=== PATIENT | female | born 1985 | race Caucasian/White ===

== ENCOUNTER 2020-01-21 12:28 | Outpatient (CLI) | payer OTHER, SELFPAY ==
--- NOTE | ~2020-01-21 | US_ITS ---
EXAMINATION: US pelvic complete w TV EXAM DATE: 01/21/2020 13:44 INDICATION: Fibroids. TECHNIQUE: Pelvic transabdominal and transvaginal sonogram was performed. There are multiple graysca le and Doppler images available for interpretation. There is no prior study for comparison. FINDINGS: Uterus measures 15.0 x 7.2 x 7.3 cm, is retroflexed which is probably contributing to some dilatations in evaluating, particularly transabdominally. There is a fibroid identified measuring 2. 8 cm Endometrial stripe measures 2 mm, within normal limits. There is no free pelvic fluid. Right adnexa: The ovary measures 4.0 x 4.8 x 2.3 cm, with a hypoechoic, likely proteinaceous cystic l esion measuring up to 3.0 cm. Ovarian vascular flow confirmed. Left adnexa: The ovary measures 4.4 x 3.7 x 4.5 cm, with a hypoechoic, likely proteinaceous cystic le alexandro measuring 3.0 cm. Ovarian vascular flow confirmed. IMPRESSION: 1. Probable small fibroid. 2. Hypoechoic cystic lesion in each ovary probably hemorrhage exists. Reviewed, dictated and finalized at location B. WELDER
== END 2020-01-21 12:29 | disposition home or self-care (01) ==
PROVIDERS: PCP Physician Assistant; Visit Provider Physician Assistant
DX: D25.9 Leiomyoma of uterus, unspecified (principal)
CPT/HCPCS: 76830; 76856

== ENCOUNTER 2020-09-17 13:15 | Outpatient (CLI) | payer OTHER, SELFPAY ==
--- NOTE | ~2020-09-17 | XR_ITS ---
CORRECTED REPORT Ordering provider changed to Yanna Gomez MATHIEU [id number] EXAMINATION: [id number] EXAM DATE: 09/17/2020 13:35 INDICATION: Neck pain. TECHNIQUE: Cervical spine frontal, lateral, and open-mouth odontoid projections. There is no prior study for comparison. FINDINGS: There is no evidence of acute cervical fracture. The odontoid process is intact. Pre-dens space is normal. Prevertebral soft tissue is normal. There are no soft tissue abnormalities identified. Vertebral body and disc heights are well-maintained. The vertebral bodies are aligned. IMPRESSION: Unremarkable cervical x-ray exam. Reviewed, dictated and finalized at location A. MTDD
== END 2020-09-17 13:16 | disposition home or self-care (01) ==
PROVIDERS: PCP Nurse Practitioner Family; Visit Provider Nurse Practitioner Family
DX: M54.2 Cervicalgia (principal)
CPT/HCPCS: 72040

== ENCOUNTER 2021-07-06 11:06 | Emergency (ER) | payer OTHER, SELFPAY ==
[2021-07-06] VITALS (28 sets, daily range): BP systolic 117–167; BP diastolic 71–97; PULSE 75–94; RESP 16–31; TEMP 36.2; O2SAT 98–100
--- NOTE | ~2021-07-06 | XR_ITS ---
EXAMINATION: XR chest 1V portable DATE: 07/06/2021 14:44 INDICATION: Dizziness. TECHNIQUE: A single frontal view of the chest was obtained. COMPARISON: Chest single view 06/11/2020 FINDINGS: The chest demonstrates clear lungs without pneumonia, pleural effusion, or pneumothorax. Th e heart size is normal. IMPRESSION: 1. No acute cardiopulmonary disease. Reviewed, dictated and finalized at location B.
--- NOTE | ~2021-07-06 | CT_ITS ---
EXAMINATION: CT brain wo con DATE: 07/06/2021 14:33 INDICATION: dizziness TECHNIQUE: Computed tomography (CT) of the head was performed without intravenous contrast. The mA wa s adjusted according to patient size. Iterative reconstruction technique was employed. The dose-lengt h product was 605.33 mGy-cm. COMPARISON: None FINDINGS: No acute intracranial hemorrhage or extra-axial fluid collection. No hydrocephalus, mass, or herniation. No acute ischemic infarct. Unremarkable dural venous sinus attenuation. No acute osseous abnormality. The aerated spaces are clear. IMPRESSION: No acute intracranial process. Reviewed, dictated and finalized at location K.
--- NOTE | 2021-07-06 11:07 | ECG_ITS ---
Measurements Intervals [place] Rate: 80 P: 26 [place]: 158 QRS: 1 QRSD: 90 T: 30 QT: 353 QTc: 408 Interpretive Statements SINUS RHYTHM LOW QRS VOLTAGE IN PRECORDIAL LEADS [QRS DEFLECTION < 1.0 mV IN CHEST LEADS] POSSIBLE ANTERIOR MYOCARDIAL INFARCTION , PROBABLY OLD [30 ms Q WAVE IN V3/V4, OR R < 0.2 mV IN V4] ABNORMAL ECG NO PREVIOUS ECG AVAILABLE FOR COMPARISON Electronically Signed On 07-06-2021 11:42:21 CDT by Dl Aldrich M.D.
[2021-07-06 11:21] LABS: Basophils Percent Auto 0.3 % (0.2-1.2); Eosinophils Absolute Auto 0.1 K/mm3 (0-0.3); Eosinophils Percent Auto 1.5 % (0-4.4); Hematocrit 35.1 % (37.0-47.0); Hemoglobin 10.4 g/dL (12.0-15.0); Immature Granulocyte Absolute 0.05 K/mm3 (0.00-0.031); Immature Granulocyte Percent A 0.5 % (0-0.5); Lymphocytes Absolute Auto 1.59 K/mm3 (0.9-3.2); Lymphocytes Percent Auto 16.8 % (18.3-44.2); Mean Corpuscular HGB Conc 29.6 g/dl (32-36); Mean Corpuscular Hemoglobin 22.6 pg (26-34); Mean Corpuscular Volume 76.3 fl (80-100); Mean Platelet Volume 9.7 fl (7.4-10.4); Monocytes Absolute Auto 0.7 K/mm3 (0.1-0.6); Monocytes Percent Auto 7.5 % (2.6-8.5); Neutrophils Percent Auto 73.4 % (45.5-73.1); Platelet Count Result 399 k/mm3 (150-375); Red Cell Distribution Width 18.8 % (11.5-14.5); White Blood Count 9.5 K/mm3 (4.5-10.0)
[2021-07-06 11:31] LABS: Alanine Aminotransferase 12 U/L (4-35); Albumin Level 4.1 g/dL (3.5-5.1); Alkaline Phosphatase 93 U/L (38-126); Anion Gap 8 mmol/L (8-16); Aspartate Amino Transferase 21 U/L (14-36); Bilirubin,Total < 0.1 mg/dL (0.2-1.3); Blood Urea Nitrogen 7 mg/dL (7-17); Carbon Dioxide 26 mmol/L (22-30); Chloride 104 mmol/L (98-107); Estimated CRCL calculation 136 ml/min; Estimated Glomerular Filt Rate > 60; Glucose 124 mg/dL (65-110); Potassium 4.1 mmol/L (3.4-5.0); Sodium 138 mmol/L (137-145)
[2021-07-06 11:49] LABS: Anisocytosis 1+ (NORMAL); Platelet Estimate Adequate (Adequate); Poikilocytosis 1+ (NORMAL)
--- NOTE | 2021-07-06 12:29 | ED.DIZZY ---
HPI - Dizziness General Chief Complaint: Dizziness Stated Complaint: dizziness Time Seen by Provider: 07/06/21 11:50 Source: RN notes reviewed History of Present Illness HPI Narrative: Patient presents emergency department from home for dizziness. Patient states has been having intermittent dizziness over the past 3 days she states that this morning she was getting ready and she bent over and became more dizzy and had to sit down since that time she called her PCPs office and was recommended come the ER for further evaluation. States she does have a history of ovarian cyst that has intermittent bleeding and they were concerned about anemia she states her dizziness is improved while laying down in the bed she denies any fevers or chills vision changes numbness or tingling in the extremities chest pain shortness of breath or any other symptoms Related Data Home Medications Medication Instructions Recorded Confirmed bupropion HCl mg PO 07/06/21 ferrous sulfate [FeroSul] mg 07/06/21 prednisolone acetate drp 07/06/21 valacyclovir 07/06/21 Allergies Allergy/AdvReac Type Severity Reaction Status Date / Time No Known Allergies Allergy Unverified 07/18/17 11:09 Review of Systems Review of Systems: Gen.: Denies fevers or chills ENT: Denies congestion Respiratory: Denies shortness of breath or cough CV: Denies chest pain or palpitations GI: Denies abdominal pain nausea, emesis or diarrhea Musculoskeletal: Denies back pain or muscle pain Neuro: See HPI Skin: Denies rash Except as documented, all other systems reviewed and negative [facility] Past Medical History Medical History (Updated 07/06/21 @ 15:36 by Andrzej Bowles DO) Ovarian cyst Social History Social History (Updated 07/06/21 @ 12:31 by Andrzej Bowles DO) Smoking status: Never smoker Exam Narrative: APPEARANCE: No acute distress, nontoxic, resting in bed EYES: EOMI HEENT: Normocephalic, atraumatic, left TM normal in appearance, the right TM cannot be visualized secondary to cerumen impaction RESPIRATORY: No respiratory distress Clear to auscultation bilaterally with no rhonchi wheezing or rales. CARDIOVASCULAR: Regular rate and rhythm without murmurs rubs or gallops. ABDOMINAL: Soft, nontender, nondistended, no rebound or guarding MUSCULOSKELETAl: Moves all extremities. No clubbing, cyanosis or edema. NEURO: Awake and alert x 4. Following commands, speech normal, no focal deficits SKIN:: Warm, dry. No rashes lesions or abrasions PSYCHIATRIC: Normal affect/mood, Course Course Emergency Course: Patient with ear irrigation with removal of cerumen from right ear repeat exam shows normal TM Patient feeling much better getting able to get up and ambulate with no difficulty Discussed with patient results of workup and diagnosis. Discussed need for follow-up with primary care, proper use of medication, and reasons to return to the emergency department. Patient understands and agrees to current treatment plan Vital Signs Vital signs: Vital Signs Pulse Rate 82 07/06/21 11:07 Blood Pressure 137/88 07/06/21 11:07 Temperature 97.2 F L 07/06/21 11:09 Pulse Rate 78 07/06/21 13:37 Respiratory Rate 16 07/06/21 11:09 Blood Pressure 144/88 H 07/06/21 13:37 Pulse Oximetry 100 07/06/21 11:09 MDM - Dizziness MDM Narrative Medical decision making narrative: Patient's vertigo is felt to be likely peripheral in origin. There is no diplopia, dysarthria or dysphagia. Patient's gait is stable and there are no cerebral deficits to exam. Risk factor for central causes of vertigo reviewed. Patient felt likely reasonable for continued outpatient management and risks are felt to outweigh benefits for further imaging studies at this time Lab Data Result diagrams: 07/06/21 11:16 07/06/21 11:16 Labs: Lab Results 07/06/21 07/06/21 07/06/21 Range/Units 11:16 11:16 12:49 WBC 9.5 (4.5-10.0) K/mm3 RBC 4.60 (
[2021-07-06] MEDS: MECLIZINE HCL 25 MG TABLET PO (13:04)
[2021-07-06] MEDS: HYDROGEN PEROXIDE 3% SOLN(*SP) 473 ML BOTTLE (13:04)
[2021-07-06 13:12] LABS: INR 1.1; Prothrombin Time 13.7 Seconds (11.1-14.7)
[2021-07-06 13:13] LABS: Partial Thromboplastin Time 29.1 SECONDS (22.3-36.8)
[2021-07-06] MEDS: SODIUM CHLORIDE 0.9% IV 1,000 ML 999 ML IV CONT (13:24)
[2021-07-06 13:52] LABS: Appearance Urine Clear (Clear); Bilirubin Urine Negative (Negative); Blood Urine Negative (Negative); Color Urine Yellow (Yellow); Glucose Urine UA Negative (Negative); Ketones Urine Negative (Negative); Leukocyte Esterase Ur Negative LEU/UL (Negative); Nitrate Urine Negative (Negative); Protein Urine Negative (Negative); Urobilinogen Urine 0.2 mg/dL (<2.0)
[2021-07-06 13:54] LABS: Add Urine Microscopic? NO
== END 2021-07-06 15:46 | disposition home or self-care (01) ==
PROVIDERS: Emergency Provider Emergency Medicine; PCP Physician Assistant
DX: R42 Dizziness and giddiness (principal); H61.21 Impacted cerumen, right ear
CPT/HCPCS: 36415; 69209; 70450; 71045; 80053; 81003; 85025; 85610; 85730; 93005; 96360; 96361; 99284; A9270; J7030

== ENCOUNTER 2021-10-15 18:40 | Emergency (ER) | payer OTHER, SELFPAY ==
--- NOTE | ~2021-10-15 | CT_ITS ---
EXAMINATION: CT abdomen pelvis w con DATE: 10/15/2021 21:18 INDICATION: Generalized abdominal pain TECHNIQUE: Computed tomography (CT) of the abdomen and pelvis was performed with 100 cc Omnipaque 300 intravenous contrast. The dose-length product was 1360.28 mGy-cm. Automated exposure control and ite rative reconstruction technique were employed. COMPARISON: None. FINDINGS: Lung bases are unremarkable. Heart size normal. No significant pleural or pericardial effus ion. There is ascites. The liver, spleen, pancreas, adrenal glands and kidneys are unremarkable. Ther e is an accessory splenule. Gallbladder is present. There are multiple loops of thickened small bowel without obstruction. There is mild mesenteric edema adjacent to the thickened bowel loops. No free a ir. No significant vascular abnormality. No lymphadenopathy. Small fat-containing umbilical hernia. U terus appears enlarged and retroverted with lobulated surface, likely due to underlying fibroid ramirez es. There are changes of bilateral tubal ligation. No acute osseous abnormality. IMPRESSION: 1. Multiple loops of abnormally thickened small bowel with adjacent edema, suspicious for infectious or inflammatory enteritis. 2: Small volume of ascites in the abdomen and pelvis. Reviewed, dictated and finalized at location A. IMPRESSION: 1. Multiple loops of abnormally thickened small bowel with adjacent edema, susp icious for infectious or inflammatory enteritis. 2: Small volume of ascites in the abdomen and pelvis.
[2021-10-15 19:24] VITALS: BP 130/88; PULSE 101; RESP 20; TEMP 36.4; O2SAT 97
--- NOTE | 2021-10-15 20:43 | ED.NAVMDI ---
HPI - Nausea/Vomiting/Diarrhea General Chief complaint: Nausea/Vomiting/Diarrhea Stated complaint: abdominal pain with n/v and constipation x1 days Time Seen by Provider: 10/15/21 19:41 History of Present Illness HPI Narrative: 36-year-old female presenting with nausea and vomiting on and off the last few days, she does have some epigastric discomfort, she thinks that it started after she ate some buffalo sauce. About a week ago she also had some diarrhea which she thinks was after she ate some shrimp, however she feels that the symptoms are worsening, she feels similar to the time that she was diagnosed with appendicitis. Related Data Home Medications Medication Instructions Recorded Confirmed bupropion HCl 150 mg 24 hr tablet, mg PO 07/06/21 extended release ferrous sulfate 325 mg (65 mg mg 07/06/21 iron) tablet (FeroSul) prednisolone acetate 1 % eye drp 07/06/21 drops,suspension valacyclovir 1 gram tablet 07/06/21 Allergies Allergy/AdvReac Type Severity Reaction Status Date / Time No Known Allergies Allergy Unverified 10/15/21 18:41 Review of Systems Review of Systems: CONST: No fever. HEENT: No sore throat C/V: No chest pain RESP: No cough GI: Reports abdominal pain, nausea, vomiting, intermittent diarrhea and constipation : No dysuria. M/S: No joint pain. SKIN: No rash. NEURO: [No headache or focal numbness or weakness] PSYCH: [No depression] [facility] Past Medical History Medical History (Updated 10/15/21 @ 22:31 by Laureen Meza MD) Ovarian cyst Social History Social History (Updated 07/06/21 @ 12:31 by Andrzej Bowles DO) Smoking status: Never smoker Exam Narrative: EXAMINATION OF ORGAN SYSTEMS/BODY AREAS: Constitutional: Vital signs per nursing GENERAL: Appears uncomfortable in the bed HEAD: Normal with no signs of head trauma. EYES: EOMI, conjunctiva normal ENT: Hearing grossly intact LUNGS: Nonlabored breathing. HEART: [Regular rate and rhythm] ABD: [Soft], [mildly tender to to palpation diffusely] EXT: Normal range of motion SKIN: [No rashes or lesions.] NEURO: [Alert and oriented x 3. No gross focal sensory or strength deficits.] PSYCH: Normal affect Course Vital Signs Vital signs: Vital Signs Temperature 97.6 F 10/15/21 19:24 Pulse Rate 101 H 10/15/21 19:24 Respiratory Rate 20 10/15/21 19:24 Blood Pressure 130/88 10/15/21 19:24 Pulse Oximetry 97 10/15/21 19:24 Oxygen Delivery Room Air 10/15/21 19:24 Temperature 97.6 F 10/15/21 19:24 Pulse Rate 101 H 10/15/21 19:24 Respiratory Rate 20 10/15/21 19:24 Blood Pressure 130/88 10/15/21 19:24 Pulse Oximetry 97 10/15/21 19:24 Oxygen Delivery Room Air 10/15/21 19:24 MDM - Nausea/Vomiting/Diarrhea MDM Narrative Medical decision making narrative: Electronic medical record was reviewed. Patient presented to the ED with complaint of abdominal pain and vomiting and diarrhea. Vitals [were within acceptable limits]. Physical exam revealed [tenderness to palpation diffusely over abdomen, periumbilical]. Based on the patient's history and physical exam, my differential includes but is not limited to [gastritis, gastroenteritis, cholecystitis, pancreatitis, SBO, UTI]. [IV access was established by nursing staff. Patient was given zofran, famotidine]. CBC, BMP, lipase, LFTs, bilirubin and alk phos were obtained. Labs were pertinent for leukocytosis. Reevaluation, patient was still uncomfortable, but she is given a dose of morphine and IV fluids. [Decision was made to obtain a CT-abdomen to evaluate for acute abdominal process. CT-abdomen shows some dilated bowel consistent with enteritis without signs of obstruction, hydronephrosis, or cholecystitis.] On reevaluation, the patient states that they are feeling much better, does have some mild cramps I will therefore give her Maalox and Bentyl. There were no witnessed episodes of vomiting in the emergency department. They are not
[2021-10-15] MEDS: ONDANSETRON INJ 4 MG/2 ML VIAL IV PUSH (20:46)
[2021-10-15] MEDS: FAMOTIDINE 20 MG/2 ML VIAL IV PUSH (20:47)
[2021-10-15 20:51] LABS: Basophils Absolute Auto 0.1 K/mm3 (0.0-0.1); Basophils Percent Auto 0.3 % (0.2-1.2); Eosinophils Absolute Auto 0.1 K/mm3 (0-0.3); Eosinophils Percent Auto 0.3 % (0-4.4); Hematocrit 38.3 % (37.0-47.0); Hemoglobin 12.3 g/dL (12.0-15.0); Immature Granulocyte Absolute 0.07 K/mm3 (0.00-0.031); Immature Granulocyte Percent A 0.4 % (0-0.5); Lymphocytes Absolute Auto 1.89 K/mm3 (0.9-3.2); Lymphocytes Percent Auto 10.6 % (18.3-44.2); Mean Corpuscular HGB Conc 32.1 g/dl (32-36); Mean Corpuscular Hemoglobin 25.9 pg (26-34); Mean Corpuscular Volume 80.8 fl (80-100); Mean Platelet Volume 9.5 fl (7.4-10.4); Monocytes Absolute Auto 0.9 K/mm3 (0.1-0.6); Monocytes Percent Auto 4.8 % (2.6-8.5); Neutrophils Percent Auto 83.6 % (45.5-73.1); Platelet Count Result 486 k/mm3 (150-375); Red Blood Count 4.74 M/mm3 (4.2-5.4); Red Cell Distribution Width 16.7 % (11.5-14.5); White Blood Count 17.9 K/mm3 (4.5-10.0)
[2021-10-15 21:02] LABS: Alanine Aminotransferase 15 U/L (6-35); Albumin Level 4.1 g/dL (3.5-5.1); Alkaline Phosphatase 83 U/L (38-126); Anion Gap 11 mmol/L (8-16); Aspartate Amino Transferase 17 U/L (14-36); Bilirubin,Total 0.3 mg/dL (0.2-1.3); Blood Urea Nitrogen 10 mg/dL (7-17); Calcium 9.2 mg/dL (8.4-10.2); Carbon Dioxide 23 mmol/L (22-30); Chloride 103 mmol/L (98-107); Estimated CRCL calculation 136 ml/min; Estimated Glomerular Filt Rate > 60; Glucose 131 mg/dL (65-110); Lipase 52 U/L (23-300); Potassium 4.1 mmol/L (3.4-5.0); Sodium 137 mmol/L (137-145)
[2021-10-15 21:05] LABS: Appearance Urine Slightly Cloudy (Clear); Bilirubin Urine Negative (Negative); Color Urine Yellow (Yellow); Glucose Urine UA Negative (Negative); Ketones Urine Negative (Negative); Leukocyte Esterase Ur Trace LEU/UL (Negative); Nitrate Urine Negative (Negative); Protein Urine Negative (Negative); Specific Grav Ur 1.015 (1.001-1.035); Urobilinogen Urine 0.2 mg/dL (<2.0); pH Urine 6.5 (5.0-9.0)
[2021-10-15 21:10] LABS: Bacteria Urine Trace /hpf; Mucus Urine Rare /lpf; RBC Urine 0-2 /hpf (0-2); Squamous Epithelial Cell Urine Many /hpf (Few); WBC Urine 0-3 /hpf
[2021-10-15 21:12] LABS: Add Urine Microscopic? YES; Blood Urine Trace-Intact (Negative)
[2021-10-15] MEDS: MORPHINE SULFATE (*CRX) 4 MG/ML INJ IV PUSH (21:20)
[2021-10-15] MEDS: LACTATED RINGERS 1,000 ML 999 ML IV CONT (21:24)
[2021-10-15] MEDS: DICYCLOMINE HCL 10 MG CAPSULE 20 MG PO (22:39)
[2021-10-15] MEDS: MAG HYDROX/AL HYDROX/SIMETH 30 ML UDC PO (22:39)
[2021-10-15 22:43] VITALS: BP 144/88; PULSE 90; RESP 16; O2SAT 98
== END 2021-10-15 22:49 | disposition home or self-care (01) ==
PROVIDERS: Emergency Provider Emergency Medicine; PCP Physician Assistant
DX: R11.2 Nausea with vomiting, unspecified (principal); R10.9 Unspecified abdominal pain
CPT/HCPCS: 36415; 74177; 80053; 81001; 81025; 83690; 85025; 96361; 96374; 96375; 99284; A9270; J2270; J2405; J7120; Q9967

== ENCOUNTER 2022-02-17 00:11 | Emergency (ER) | payer OTHER, SELFPAY ==
[2022-02-17 00:20] VITALS: BP 132/79; PULSE 98; RESP 16; TEMP 36.3; O2SAT 99
--- NOTE | 2022-02-17 00:38 | PC.NURSE ---
patient states she had one episode of emesis at work around 1430 but they wouldnt let her go home untill she had an episode of loose stools at 1700 she states she went to bed and when she woke up around 11 she tried to make her self have a bowel movement and pushed so hard she got dizzy and had to lay back down. she states she then thought she should vomit and tried to make herself do that as well but couldnt so she came to er
--- NOTE | 2022-02-17 00:55 | ED.GENADULT ---
HPI - General Adult General Chief complaint: Abdominal Pain Stated complaint: Vomiting Time Seen by Provider: 02/17/22 00:54 History of Present Illness HPI narrative: 36-year-old female history of appendectomy cholecystectomy presents to the emergency room for evaluation of a right lower quadrant pain. Patient states 230 this afternoon she was eating a [employer] sandwich when a few minutes later she began throwing up. Patient states that she had 1 episode of nausea nonbloody nonbilious emesis. States a couple hours later had a couple episodes of diarrhea that was associated with right lower quadrant abdominal pain. Patient denies fevers. Patient states that the pain is similar to when she was experiencing gastroenteritis several months ago. Patient states that she attempted to force herself to throw up but became lightheaded and dizzy when doing so. Related Data Home Medications Medication Instructions Recorded Confirmed bupropion HCl 150 mg 24 hr tablet, mg PO 07/06/21 extended release ferrous sulfate 325 mg (65 mg mg 07/06/21 iron) tablet (FeroSul) prednisolone acetate 1 % eye drp 07/06/21 drops,suspension valacyclovir 1 gram tablet 07/06/21 Allergies Allergy/AdvReac Type Severity Reaction Status Date / Time No Known Allergies Allergy Verified 02/17/22 00:23 Review of Systems Review of Systems: CONSTITUTIONAL: Denies fever, chills, or sweats. EYES: Denies visual changes, redness, or discharge. ENT: Denies rhinorrhea, congestion, sore throat, or otalgia. CARDIOVASCULAR: Denies chest pain, palpitations, or edema. RESPIRATORY: Denies cough or dyspnea. GASTROINTESTINAL: Reports abdominal pain, nausea, vomiting and diarrhea GENITOURINARY: Denies dysuria or hematuria. SKIN: Denies rash or itching. MUSCULOSKELETAL: Denies back pain, joint pain, or myalgia. NEUROLOGIC: Denies headache, numbness, dizziness, or weakness. PSYCHIATRIC: Denies anxiety or depression. PMFSH Past Medical History Medical History Ovarian cyst Social History Social History Smoking status: Never smoker Exam Narrative: GENERAL: Well-appearing, well-nourished, no physical limitations, and in no acute distress. HEAD: Normocephalic, atraumatic. EYES: Conjunctivae normal, PERRLA and EOMI. CHEST: Clear to auscultation. No respiratory distress. No wheezes rales or rhonchi. HEART: Regular rate and rhythm. No murmur heard. Normal peripheral pulses. ABDOMEN: Soft, nontender, morbidly obese, nondistended, normal active bowel sounds. BACK: No CVA tenderness; EXTREMITIES: Normal range of motion. No edema. No clubbing or cyanosis SKIN: Warm, dry, no rash. No noted wounds NEURO: No focal deficits. Alert and oriented x3. MAEW. CN's II-XI intact bilaterally, normal gait PSYCH: Cooperative. Normal mood and affect. Course Vital Signs Vital signs: Vital Signs Temperature 36.3 C L 02/17/22 00:20 Pulse Rate 98 02/17/22 00:20 Respiratory Rate 16 02/17/22 00:20 Blood Pressure 132/79 02/17/22 00:20 Pulse Oximetry 99 02/17/22 00:20 Oxygen Delivery Room Air 02/17/22 00:20 Temperature 36.3 C L 02/17/22 00:20 Pulse Rate 98 02/17/22 00:20 Respiratory Rate 16 02/17/22 00:20 Blood Pressure 132/79 02/17/22 00:20 Pulse Oximetry 99 02/17/22 00:20 Oxygen Delivery Room Air 02/17/22 00:20 Medical Decision Making Vital Signs Vital Signs: Vital Signs Temperature 36.3 C L 02/17/22 00:20 Pulse Rate 98 02/17/22 00:20 Respiratory Rate 16 02/17/22 00:20 Blood Pressure 132/79 02/17/22 00:20 Pulse Oximetry 99 02/17/22 00:20 Oxygen Delivery Room Air 02/17/22 00:20 Temperature 36.3 C L 02/17/22 00:20 Pulse Rate 98 02/17/22 00:20 Respiratory Rate 16 02/17/22 00:20 Blood Pressure 132/79 02/17/22 00:20 Pulse Oximetry 99 02/17/22 00:20 Oxygen Delivery Room Air
[2022-02-17] MEDS: ONDANSETRON INJ 4 MG/2 ML VIAL IV PUSH (01:16)
[2022-02-17] MEDS: DICYCLOMINE HCL INJ 20 MG/2 ML VIAL IM (01:16)
[2022-02-17] MEDS: SODIUM CHLORIDE 0.9% IV 1,000 ML 999 ML IV CONT (01:21)
== END 2022-02-17 02:45 | disposition home or self-care (01) ==
PROVIDERS: Emergency Provider Nurse Practitioner Family; PCP Physician Assistant
DX: K52.9 Noninfective gastroenteritis and colitis, unspecified (principal)
CPT/HCPCS: 96361; 96372; 96374; 99284; J0500; J2405; J7030

== ENCOUNTER 2022-06-10 10:26 | Outpatient (CLI) | payer OTHER, SELFPAY ==
--- NOTE | ~2022-06-10 | US_ITS ---
Abdominal Sonogram: Real-time sonographic imaging of the abdomen was performed. Clinical History: Viral enteritis Findings: The liver appears normal with no evidence of mass lesion or bile duct dilatation. Main por kristyn vein demonstrates normal direction of flow. The spleen is normal in size without evidence of foca l lesion. The gallbladder is well distended, and appears normal with no evidence of gallstone or wal l thickening. The common bile duct measures 3 mm. The visualized pancreas, aorta, and IVC are unrema rkable. The right kidney measures 12.3 cm in length and the left kidney measures 11.3 cm. There is no hydronephrosis or renal calculus. Impression: Unremarkable abdominal ultrasound. Reviewed, dictated and finalized at location . Impression: Unremarkable abdominal ultrasound.
== END 2022-06-10 10:27 | disposition home or self-care (01) ==
LOC: ANHIMG 10:33
PROVIDERS: PCP Physician Assistant; Visit Provider Physician Assistant
DX: A08.4 Viral intestinal infection, unspecified (principal)
CPT/HCPCS: 76700

== ENCOUNTER 2022-09-19 13:52 | Emergency (ER) | payer OTHER, SELFPAY ==
--- NOTE | ~2022-09-19 | CT_ITS ---
EXAMINATION: CT abdomen pelvis w con DATE: 09/19/2022 16:22 INDICATION: Diffuse abdominal pain TECHNIQUE: Computed tomography (CT) of the abdomen and pelvis was performed with 100 mL Omnipaque-350 intravenous contrast. Automated exposure control and iterative reconstruction technique were employe d. The dose-length product was 1483.15 mGy-cm. COMPARISON: None FINDINGS: Lung bases are clear. Heart size is normal. No pericardial or pleural effusion. Focal hepatic steatos is at the ligamentum teres. Gallbladder, spleen, pancreas, left adrenal gland and bilateral kidneys a re normal. No significant change in a 1.7 similar right adrenal nodule which given the interval stabi lity most likely represents an adenoma. Small amount of ascites scattered throughout the abdomen and pelvis. Small suture line at the tip the cecum likely related to prior appendectomy. Colon is otherwi se unremarkable. Again seen is edematous wall thickening along a few segments of nondilated small bow el in the central abdomen and mild haziness to the associated mesenteric fat which again most consist ent with an infectious or inflammatory enteritis. No bowel obstruction. A couple fibroids at the uter ine fundus, the larger and more anterior measuring approximately 2 cm and a second larger 2.7 cm like ly pedunculated fibroid arising posteriorly from the anteverted, retroflexed uterus. 2 cm right adne xal cyst/follicle. Tubal ligation clips at the bilateral adnexa. No pathologically enlarged abdominal or pelvic lymphadenopathy. Bones are unremarkable. IMPRESSION: 1. Again seen is edematous wall thickening of a few loops of small bowel in the midabdomen with mild associated mesenteric edema which could represent an infectious or inflammatory enteritis. 2. Small amount of nonspecific ascites scattered throughout the abdomen and pelvis. 3. Fibroid uterus. Reviewed, dictated and finalized at location A. IMPRESSION: 1. Again seen is edematous wall thickening of a few loops of small bowel in the midabdomen with mild associated mesenteric edema which could represent an infe ctious or inflammatory enteritis. 2. Small amount of nonspecific ascites scattered throughout the abdomen and pel vis. 3. Fibroid uterus.
[2022-09-19 13:53] VITALS: BP 152/97; PULSE 92; RESP 18; TEMP 36.6; O2SAT 100
[2022-09-19 14:10] LABS: Basophils Absolute Auto 0.1 K/mm3 (0.0-0.1); Basophils Percent Auto 0.3 % (0.2-1.2); Eosinophils Absolute Auto 0.1 K/mm3 (0-0.3); Eosinophils Percent Auto 0.3 % (0-4.4); Hemoglobin 10.1 g/dL (12.0-15.0); Immature Granulocyte Percent A 0.5 % (0-0.5); Lymphocytes Percent Auto 6.5 % (18.3-44.2); Mean Corpuscular HGB Conc 29.7 g/dl (32-36); Mean Corpuscular Hemoglobin 21.6 pg (26-34); Mean Corpuscular Volume 72.6 fl (80-100); Mean Platelet Volume 9.3 fl (7.4-10.4); Monocytes Absolute Auto 0.7 K/mm3 (0.1-0.6); Monocytes Percent Auto 3.7 % (2.6-8.5); Neutrophils Absolute Auto 16.3 K/mm3 (1.3-6.7); Neutrophils Percent Auto 88.7 % (45.5-73.1); Platelet Count Result 456 k/mm3 (150-375); Red Blood Count 4.68 M/mm3 (4.2-5.4); Red Cell Distribution Width 18.8 % (11.5-14.5); White Blood Count 18.3 K/mm3 (4.5-10.0)
[2022-09-19 14:22] LABS: Alanine Aminotransferase 19 U/L (6-35); Albumin Level 4.4 g/dL (3.5-5.1); Alkaline Phosphatase 102 U/L (38-126); Anion Gap 6 mmol/L (8-16); Aspartate Amino Transferase 21 U/L (14-36); Bilirubin,Total 0.4 mg/dL (0.2-1.3); Blood Urea Nitrogen 11 mg/dL (7-17); Calcium 9.4 mg/dL (8.4-10.2); Carbon Dioxide 29 mmol/L (22-30); Chloride 103 mmol/L (98-107); Estimated CRCL calculation 135 ml/min; Estimated Glomerular Filt Rate > 60; Glucose 124 mg/dL (65-110); Lipase 92 U/L (23-300); Potassium 4.1 mmol/L (3.4-5.0); Sodium 138 mmol/L (137-145)
[2022-09-19 14:40] LABS: Platelet Estimate Increased (Adequate)
[2022-09-19 14:41] LABS: Schistocytes None Seen (NORMAL)
[2022-09-19 14:42] LABS: Hypochromasia 1+ (NORMAL)
[2022-09-19 14:43] LABS: Anisocytosis 3+ (NORMAL)
[2022-09-19 14:57] LABS: Appearance Urine Cloudy (Clear); Bacteria Urine 4+ /hpf; Bilirubin Urine Negative (Negative); Blood Urine Negative (Negative); Color Urine Dark Yellow (Yellow); Glucose Urine UA Negative (Negative); Hyaline Casts Urine Present /lpf; Ketones Urine 1+ mg/dL (Negative); Leukocyte Esterase Ur Negative LEU/UL (Negative); Nitrate Urine Negative (Negative); Non Pathogenic Casts 0-2; Protein Urine 1+ mg/dL (Negative); Specific Grav Ur 1.029 (1.001-1.035); Squamous Epithelial Cell Urine Moderate /hpf (Few); WBC Urine 0-5 /hpf
[2022-09-19 15:00] LABS: Add Urine Microscopic? YES
[2022-09-19] MEDS: SODIUM CHLORIDE 0.9% IV 1,000 ML 999 ML IV CONT (15:44)
[2022-09-19] MEDS: PANTOPRAZOLE SODIUM IV 40 MG VIAL IV PUSH (15:45)
[2022-09-19] MEDS: ONDANSETRON INJ 4 MG/2 ML VIAL IV PUSH (15:45)
[2022-09-19] MEDS: KETOROLAC 15 MG/ML VIAL (*BKC) IV PUSH (15:46)
[2022-09-19] MEDS: DICYCLOMINE HCL INJ 20 MG/2 ML VIAL IM (15:50)
--- NOTE | 2022-09-19 15:59 | ED.ABDPAIN ---
HPI - Abdominal Pain General Chief Complaint: Abdominal Pain Stated Complaint: abd pain Time Seen by Provider: 09/19/22 15:04 Source: patient, RN notes reviewed and old records reviewed Mode of arrival: ambulatory Limitations: no limitations History of Present Illness HPI narrative: This is a 37 year old female who presents for evaluation of abdominal pain. She states this pain started suddenly this morning 8 am. She denies pain has diffuse cramping. She reports having similar pain in the past. SHe states she was prescribed medication last year which help her pain. She does not have this medication any more. She reports nausea but denies vomiting and diarrhea. She denies measured fever. She has not tried any medication for her pain. Related Data Home Medications Medication Instructions Recorded Confirmed bupropion HCl 150 mg 24 hr tablet, mg PO 07/06/21 extended release ferrous sulfate 325 mg (65 mg mg 07/06/21 iron) tablet (FeroSul) prednisolone acetate 1 % eye drp 07/06/21 drops,suspension valacyclovir 1 gram tablet 07/06/21 Allergies Allergy/AdvReac Type Severity Reaction Status Date / Time No Known Allergies Allergy Verified 09/19/22 15:17 Review of Systems Review of Systems: All systems reviewed & are unremarkable except as noted in HPI and below PMFSH Past Medical History Medical History (Updated 09/19/22 @ 17:53 by Debby Boucher MD) Ovarian cyst Surgical History Surgical History (Updated 09/19/22 @ 17:54 by Debby Boucher MD) H/O tubal ligation History of appendectomy Social History Social History Smoking status: Never smoker Exam Const: General: alert Nutritional Appearance: obese Orientation/consciousness: patient oriented x3 Limitations: no limitations HENMT: Head: normal to inspection Teeth and gingiva: abnormal tooth and associated gingiva (upper teeth mostly decayed) Throat: posterior oropharynx normal and uvula midline Eyes: EOM: EOMs intact bilaterally Resp: Effort & Inspection: normal respiratory effort Auscultation: clear to auscultation bilaterally Cardio: Rate: regular rate Rhythm: regular rhythm Heart sounds: no murmurs GI: GI Palp: Yes Soft to palpation, Yes Tenderness to palpation present (GI) (diffuse), No Guarding due to palpation present (GI) and No Rigid due to palpation Auscultation: normal bowel sounds Back/Spine/Pelvis: Back: no CVA tenderness Skin: General skin exam: normal color Rashes: no rashes Wounds: no wounds Neuro: General: patient oriented x3, moves all extremities and CN's II-XI intact bilaterally Extrem: General: normal to inspection Psych: Mental Status: mental status grossly normal Affect: normal affect Attitude: cooperative Course Reevaluation(s) Reevaluation #1: PAtient feels better. I Discussed CT shows small bowel inflammation, no obstruction. She has leukocytosis again. Will discharge on antibiotics and have her to follow up with GI. REturn precautions given. Date: 09/19/22 Time: 17:30 Vital Signs Vital signs: Vital Signs Temperature 97.8 F 09/19/22 13:53 Pulse Rate 92 09/19/22 13:53 Respiratory Rate 18 09/19/22 13:53 Blood Pressure 152/97 H 09/19/22 13:53 Pulse Oximetry 100 09/19/22 13:53 Oxygen Delivery Room Air 09/19/22 13:53 Temperature 97.8 F 09/19/22 13:53 Pulse Rate 92 09/19/22 13:53 Respiratory Rate 18 09/19/22 13:53 Blood Pressure 152/97 H 09/19/22 13:53 Pulse Oximetry 100 09/19/22 13:53 Oxygen Delivery Room Air 09/19/22 13:53 MDM - Abdominal Pain MDM Narrative Medical decision making narrative: Patient presented with abdominal pain. This seems to be similar to episode she had in 09/2021. She has leukocytosis with wbc 18, normal lactic acid, no fever. no sign of severe sepsis. Patient given bentyl 20 mg IM, zofran 4 mg IV, toradol 15 mg IV with 1 liter NS bolus, protonix 40 mg IV
[2022-09-19 16:06] LABS: Lactic Acid Reflex 0.8 mmol/L (0.7-2.0)
[2022-09-19] MEDS: metroNIDAZOLE 250 MG TABLET 500 MG PO (17:53)
[2022-09-19] MEDS: CIPROFLOXACIN 500 MG TAB PO (17:53)
== END 2022-09-19 17:56 | disposition home or self-care (01) ==
PROVIDERS: Emergency Medicine; Emergency Provider General Practice; PCP Physician Assistant
DX: K52.9 Noninfective gastroenteritis and colitis, unspecified (principal)
CPT/HCPCS: 36415; 74177; 80053; 81001; 81025; 83605; 83690; 85025; 96361; 96372; 96374; 96375; 99284; A9270; C9113; J0500; J1885; J2405; J7030; Q9967

== ENCOUNTER 2022-10-07 15:00 | Outpatient (RCR) | payer OTHER, SELFPAY ==
--- NOTE | 2022-09-23 13:29 | PTOPEVAL1 ---
Assessment and note entered by Stephanie Retana, PT Evaluation Information Assessment Status Evaluation Diagnosis cervical pain with radiculopathy Onset August 2022 Subjective Information no trauma or injury to neck/arms; started having pain in neck and into arms and hands; have not had any imaging; scheduled for nerve conduction test in Oct; going to gastrologist for abdominal pain and recent blood work was positive for autoimmune disease--getting worked up for it; dr wants to do MRI, but have to have therapy first have problems with reaching arms overhead, when bend forward- feel like cannot get air and going to suffocate; arms go to sleep when sleeping; have new wrist braces to wear with sleeping; is working 2 jobs--[employer] 40 hr/week and [employer] 40 hours/week; 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 Reported Pain Level Pain Score Self Report Additional Pain Score Comments pain range in the past week 2-5/10 in bilateral neck, intermittent into both hands--numb/ tingle; sometimes legs go numb too; get dizzy and lightheaded --when bend down to floor; have headaches about 3x/wk- can last 2-3 hours increase pain: lifting, reaching over head, decrease pain: rub neck, rest, ibuprofen or tylenol PRN; have not used heat or ice over neck- instruct on PRN use. is able to sleep through the night, have problems getting comfortable to fall asleep, and wake up with numb/tingle in hands; have pain all over--neck, arms, back, hips; Assessment PT Clinical Summary Sandra has the diagnosis of cervical pain with radiculopathy- intermittent into R and L hands and headaches 3x/wk. She is performing all of her work and home tasks with increased pain. Currently she is working 2 time checker jobs. Her medical history includes chronic back pain and recently abdominal pain- going to see gastrologist and ? autoimmune disease from recent blood work. Oswestry self assessment functional score of 28% limitation in activity level. With the evaluation, she has decreased cervical rotation to R and L with increased pain reported; poor standing posture with severely rounded shoulders, with R forwa
--- NOTE | 2022-09-23 13:30 | OPREHPOC ---
Outpatient Therapy Plan of Care This is a Multidisciplinary Plan of Care that may contain components documented by all disciplines (PT, OT, and ST.) PT Problem 1 PT Problem #1 Knowledge Deficit PT Goal 1 Goal 1* pt indep with HEP 2* pt demonstrate correct posture of shoulders with exercises PT Problem 2 PT Problem #2 Pain PT Goal 1 Goal 1* pt report pain rating at worst of 3/10 2* radicular pain to R forearm at worst 3* radicular pain to L forearm at worst 4* Oswestry self assessment functional score of 20 % PT Problem 3 PT Problem #3 Impaired Flexibility PT Goal 1 Goal pt not report pain increase with: 1* cervical rotation R 2* cervical rotation L 3* R shoulder flexion in sitting, active cervical rotation 4* R 45' 5* L 45' PT Problem 4 PT Problem #4 Impaired Strength PT Goal 1 Goal 1* pt perform 20 reps of cervical-thoracic strengthening exercises on mat and standing positions
--- NOTE | 2022-10-11 14:52 | PCPTNOTE ---
Patient canceled 10/11/22 appointment as she had to work.
--- NOTE | 2022-11-08 09:39 | PTOPDC ---
Assessment and note entered by Stephanie Retana, PT Evaluation Information Assessment PT Clinical Summary DISCHARGE PT Sandra has received 4 PT sessions, from September 23 to . She did not return for any further treatment. The goals were not addressed. Discharge PT services. Plan of Care PT Services Indicated No
== END 2022-11-08 10:48 | disposition home or self-care (01) ==
LOC: ANHPT 15:00
PROVIDERS: PCP Physician Assistant; Visit Provider Physician Assistant
DX: M62.838 Other muscle spasm (principal)
CPT/HCPCS: 97110; 97140; 97161

== ENCOUNTER 2022-10-19 08:49 | Outpatient (CLI) | payer OTHER, SELFPAY ==
--- NOTE | 2022-10-19 11:00 | NEURO_ITS ---
Impression: # Complains of numbness of hands. # Bilateral evolving Carpal Tunnel Syndrome. # No ulnar neuropathy. # Normal needle/EMG. # Clinical correlation recommended. Nerve Conduction Studies Anti Sensory Summary Table Stim Site NR Peak (ms) P-T Amp (?V) Site1 Site2 Delta-P (ms) Dist (cm) Tyrese (m/s) Left Median Anti Sensory (2-3nd Digit) Wrist 3.9 45.2 Wrist 2-3nd Digit 3.9 14.0 36 Wrist 4.0 71.9 Wrist 2-3nd Digit 3.9 14.0 36 Right Median Anti Sensory (2-3nd Digit) Wrist 4.2 29.4 Wrist 2-3nd Digit 4.2 14.0 33 Wrist 4.1 28.2 Wrist 2-3nd Digit 4.2 14.0 33 Left Radial Anti Sensory (Base 1st Digit) Wrist 1.9 25.5 Wrist Base 1st Digit 1.9 0.0 Right Radial Anti Sensory (Base 1st Digit) Wrist 2.0 28.1 Wrist Base 1st Digit 2.0 0.0 Left Ulnar Anti Sensory (5th Digit) Wrist 2.4 87.5 Wrist 5th Digit 2.4 14.0 58 Right Ulnar Anti Sensory (5th Digit) Wrist 2.8 75.2 Wrist 5th Digit 2.8 14.0 50 Motor Summary Table Stim Site NR Onset (ms) O-P Amp (mV) Site1 Site2 Delta-0 (ms) Dist (cm) Tyrese (m/s) Left Median Motor (Abd Poll Brev) Wrist 3.8 3.1 Elbow Wrist 4.7 26.0 55 Elbow 8.5 2.6 Right Median Motor (Abd Poll Brev) Wrist 3.6 1.8 Elbow Wrist 5.1 27.0 53 Elbow 8.7 1.3 Left Ulnar Motor (Abd Dig Minimi) Wrist 2.3 6.9 A Elbow Wrist 5.0 28.0 56 A Elbow 7.3 3.5 Right Ulnar Motor (Abd Dig Minimi) Wrist 2.4 5.1 A Elbow Wrist 5.1 30.0 59 A Elbow 7.5 4.0 F Wave Studies NR F-Lat (ms) L-R F-Lat (ms) Left Median (Mrkrs) (Abd Poll Brev) 28.05 0.87 Right Median (Mrkrs) (Abd Poll Brev) 28.91 0.87 Left Ulnar (Mrkrs) (Abd Dig Min) 27.01 0.33 Right Ulnar (Mrkrs) (Abd Dig Min) 27.34 0.33 EMG Side Muscle Nerve Root Ins Act Fibs Amp Dur Recrt Comment Right 1stDorInt Ulnar C8-T1 Nml Nml Nml Nml Nml Right Ext Indicis Radial (Post Int) C7-8 Nml Nml Nml Nml Nml Right Ext Digitorum Radial (Post Int) C7-8 Nml Nml Nml Nml Nml Right BrachioRad Radial C5-6 Nml Nml Nml Nml Nml Right PronatorTeres Median C6-7 Nml Nml Nml Nml Nml Right Abd Poll Brev Median C8-T1 Nml Nml Nml Nml Nml Left 1stDorInt Ulnar C8-T1 Nml Nml Nml Nml Nml Left Ext Indicis Radial (Post Int) C7-8 Nml Nml Nml Nml Nml Left Ext Digitorum Radial (Post Int) C7-8 Nml Nml Nml Nml Nml Left BrachioRad Radial C5-6 Nml Nml Nml Nml Nml Left PronatorTeres Median C6-7 Nml Nml Nml Nml Nml Left Abd Poll Brev Median C8-T1 Nml Nml Nml Nml Nml MTDD
== END 2022-10-19 08:50 | disposition home or self-care (01) ==
LOC: ANHNEURO 08:50
PROVIDERS: PCP Physician Assistant; Visit Provider Physician Assistant
DX: R20.2 Paresthesia of skin (principal); G56.03 Carpal tunnel syndrome, bilateral upper limbs
CPT/HCPCS: 95886; 95911

== ENCOUNTER 2023-06-07 20:12 | Observation (INO) | payer OTHER, SELFPAY ==
--- NOTE | ~2023-06-07 | CT_ITS ---
CT of the Abdomen and Pelvis: Indication: Abdominal pain Technique: 2.5 mm axial scans were obtained through the abdomen and pelvis following intravenous adm inistration of 100 cc of Omnipaque 350. Dose reduction technique was used on this scan by utilizing a utomated exposure control and iterative reconstruction technique. The dose-length product (DLP) was 1 488.50 mGy-cm. COMPARISON: 09/19/2022 Findings: Scans through the lung bases are unremarkable. The liver, spleen, pancreas, gallbladder, left adrenal gland, and kidneys are within normal limits. S table right adrenal nodule present. No evidence of aortic aneurysm. No lymphadenopathy. No bowel obstruction or bowel wall thickening. There is no evidence to suggest acute appendicitis. Images through the pelvis were performed. Urinary bladder unremarkable. No pelvic mass seen. No ascit es. Impression: No acute abnormality. Stable right adrenal nodule, most likely adenoma. Reviewed, dictated and finalized at [facility]. Impression: No acute abnormality. Stable right adrenal nodule, most likely adenoma.
[2023-06-07 20:39] VITALS: BP 144/109; PULSE 78; RESP 17; TEMP 36.6; O2SAT 100
[2023-06-07 20:53] LABS: Basophils Percent Auto 0.4 % (0.2-1.2); Eosinophils Absolute Auto 0.1 K/mm3 (0-0.3); Eosinophils Percent Auto 1.6 % (0-4.4); Hematocrit 27.1 % (37.0-47.0); Hemoglobin 7.8 g/dL (12.0-15.0); Immature Granulocyte Absolute 0.03 K/mm3 (0.00-0.031); Immature Granulocyte Percent A 0.4 % (0-0.5); Lymphocytes Percent Auto 21.5 % (18.3-44.2); Mean Corpuscular HGB Conc 28.8 g/dl (32-36); Mean Corpuscular Hemoglobin 20.1 pg (26-34); Mean Corpuscular Volume 69.8 fl (80-100); Mean Platelet Volume 9.5 fl (7.4-10.4); Monocytes Absolute Auto 0.7 K/mm3 (0.1-0.6); Monocytes Percent Auto 8.6 % (2.6-8.5); Neutrophils Absolute Auto 5.4 K/mm3 (1.3-6.7); Neutrophils Percent Auto 67.5 % (45.5-73.1); Platelet Count Result 382 k/mm3 (150-375); Red Blood Count 3.88 M/mm3 (4.2-5.4); White Blood Count 7.9 K/mm3 (4.5-10.0)
[2023-06-07 21:03] LABS: Alanine Aminotransferase 13 U/L (6-35); Albumin Level 4.1 g/dL (3.5-5.1); Alkaline Phosphatase 84 U/L (38-126); Anion Gap 5 mmol/L (8-16); Anisocytosis 1+; Aspartate Amino Transferase 19 U/L (14-36); Bilirubin,Total 0.4 mg/dL (0.2-1.3); Blood Urea Nitrogen 6 mg/dL (7-17); Carbon Dioxide 26 mmol/L (22-30); Chloride 106 mmol/L (98-107); Estimated CRCL calculation 128 ml/min; Estimated Glomerular Filt Rate > 60; Glucose 106 mg/dL (65-110); Hypochromasia 1+; Ovalocytes 1+; Platelet Estimate Slightly Increased (Adequate); Potassium 3.8 mmol/L (3.4-5.0); Schistocytes None Seen; Sodium 137 mmol/L (137-145)
[2023-06-07 21:04] LABS: INR 1.1; Prothrombin Time 14.3 Seconds (11.1-14.7)
[2023-06-07 21:05] LABS: Partial Thromboplastin Time 33.6 Seconds (22.3-36.8)
--- NOTE | 2023-06-08 00:05 | ECG_ITS ---
Measurements Intervals [place] Rate: 73 P: 24 NE: 164 QRS: 21 QRSD: 104 T: 29 QT: 389 QTc: 431 Interpretive Statements SINUS RHYTHM LOW QRS VOLTAGE IN PRECORDIAL LEADS BORDERLINE ECG COMPARED TO ECG 07/06/2021 11:13:26 NO SIGNIFICANT CHANGES Electronically Signed On 06-08-2023 6:27:23 CDT by Modesto Hopkins D.O.
--- NOTE | 2023-06-08 00:07 | ED.GIBLEED ---
HPI - GI Bleed General Chief complaint: GI Bleed Stated complaint: GI bleed, abd pain Time Seen by Provider: 06/07/23 23:41 History of Present Illness HPI Narrative: 37-year-old female with a history of appendectomy, cholecystectomy and reported history of hemorrhoids and diverticulitis presents to emergency department for blood in the toilet that started today. Patient states she has had about 7-8 bowel movements today and each time she went to the bathroom she urinated. States she noticed bright red blood that filled up the toilet but is unable to identify if it came from her stool or her urine. She states she had a period about 1-2 weeks ago that was normal and does not believe the blood is coming from her vagina. States that she had a colonoscopy a few months ago at another hospital and does not remember the results. She knows that she was told she had hemorrhoids and was advised to return in 1-2 weeks for banding, however she did not return. She denies rectal pain, dysuria or hematuria, fever, vomiting, melena. She does endorse nausea and diffuse abdominal pain she describes as cramping, As well as lightheadedness. Denies syncope. She is also reporting with some tenderness to her left labia that has been there for multiple months. She was seen by her PCP in December 2022 and was prescribed powder for this but she is unsure what it is. She has not followed up regarding this issue. Pt is a poor historian. she is not anticoagulated. Related Data Home Medications Medication Instructions Recorded Confirmed bupropion HCl 150 mg 24 hr tablet, mg PO 07/06/21 extended release ferrous sulfate 325 mg (65 mg mg 07/06/21 iron) tablet (FeroSul) prednisolone acetate 1 % eye drp 07/06/21 drops,suspension valacyclovir 1 gram tablet 07/06/21 Allergies Allergy/AdvReac Type Severity Reaction Status Date / Time No Known Allergies Allergy Verified 09/19/22 15:17 Review of Systems Review of Systems: CONSTITUTIONAL: Denies fever, chills, or sweats. EYES: Denies visual changes, redness, or discharge. ENT: Denies rhinorrhea, congestion, sore throat, or otalgia. CARDIOVASCULAR: Denies chest pain, palpitations, or edema. RESPIRATORY: Denies cough or dyspnea. GASTROINTESTINAL: See HPI GENITOURINARY: Denies dysuria or hematuria. SKIN: Denies rash or itching. MUSCULOSKELETAL: Denies back pain, joint pain, or myalgia. NEUROLOGIC: Denies headache, numbness, or weakness. PSYCHIATRIC: Denies anxiety or depression. [facility] Past Medical History Medical History Ovarian cyst Surgical History Surgical History H/O tubal ligation History of appendectomy Social History Social History Smoking status: Never smoker Exam Narrative: GENERAL: Well-appearing, well-nourished, and in no acute distress. HEAD: Normocephalic, atraumatic. EYES: PERRLA and EOMI. ENT: Nares clear, no rhinorrhea or epistaxis. Mucous membranes moist. NECK: Supple. CHEST: Clear to auscultation. No respiratory distress. HEART: Regular rate and rhythm. No murmur heard. Normal peripheral pulses. ABDOMEN: Soft, nontender, nondistended, normal active bowel sounds. no rebound, guarding or rigidity. No CVA tenderness. Rectal exam without gross melena or hematochezia. Hemoccult is positive. There is 2 external hemorrhoids that are nonthrombosed not actively bleeding. : Erythema and edema to the left anterior labia with palpable induration. No fluctuance, no active drainage. No vaginal bleeding or discharge in vaginal vault. No CMT or adnexal masses or tenderness. EXTREMITIES: Normal range of motion. No edema. SKIN: Warm, dry, no rash. NEURO: No focal deficits. Alert and oriented x3 Course Vital Signs Vital signs: Vital Signs Temperature 97.8 F 06/07/23 20:39
[2023-06-08] MEDS: SODIUM CHLORIDE 0.9% IV 1,000 ML 999 ML IV CONT (00:23)
[2023-06-08 00:36] LABS: Lactic Acid Reflex 0.8 mmol/L (0.7-2.0)
[2023-06-08 01:46] LABS: Appearance Urine Clear (Clear); Bacteria Urine Rare /hpf; Bilirubin Urine Negative (Negative); Blood Urine 1+ (Negative); Color Urine Yellow (Yellow); Glucose Urine UA Negative (Negative); Ketones Urine Negative (Negative); Leukocyte Esterase Ur Trace LEU/UL (Negative); Need Manual Microscopic Reviewed; Nitrate Urine Negative (Negative); Non Pathogenic Casts 0-2; Protein Urine Negative (Negative); Specific Grav Ur 1.014 (1.001-1.035); Squamous Epithelial Cell Urine Occasional /hpf (Few); Urobilinogen Urine 0.2 mg/dL (<2.0); WBC Urine 0-5 /hpf (0-3); pH Urine 6.5 (5.0-9.0)
[2023-06-08 01:47] LABS: Add Urine Microscopic? YES
[2023-06-08] MEDS: DICYCLOMINE HCL 10 MG CAPSULE 20 MG PO (02:54)
[2023-06-08 02:57] VITALS: BP 149/99; PULSE 70; RESP 16; O2SAT 97
[2023-06-08 03:01] LABS: Hematocrit 26.1 % (37.0-47.0); Hemoglobin 7.6 g/dL (12.0-15.0)
[2023-06-08 03:12] LABS: Lipase 116 U/L (23-300)
[2023-06-08 03:58] VITALS: BP 148/97; PULSE 75; RESP 17; O2SAT 97
[2023-06-08 04:10] VITALS: BP 156/81; PULSE 71; RESP 19; TEMP 36; O2SAT 100
--- NOTE | 2023-06-08 04:11 | ADMGEN ---
This patient, Sandra Lofton, was admitted to 3 [facility] Surg Room 319-01. Patient/family oriented to hospital policies and general routines including ID bracelet, bed and alarms, visiting hours, pain management, procedures, bathroom and other care routines, personal items, smoking policy, room service/diet, and visiting hours. Information on how to activate the Rapid Response Team has been discussed. Patient/Family are encouraged to report perceived risks to care and to ask questions if they do not understand what they are told or what they should do.
--- NOTE | 2023-06-08 08:21 | PM.IMHP ---
H&P: HPI History of Present Illness Date/Time: 06/08/23 08:21 Chief Complaint: GI Bleed Narrative: 37 year old female with past medical history of diverticulitis, hemorrhoids, ANTONIO and appendicitis s/p appendectomy presented to the ED for a GI bleed. She was experienced 3 bright red bloody stools last week, but decided to ignore it in hopes it would subside on its own. She states the bleeding did subside for a few days, however yesterday she had 7-8 bloody stools that filled the toilet. Today she states there has been less bleeding and the blood is now primarily present when she wipes. She endorses occasional nausea without vomiting and left lower quadrant abdominal pain. She described the abdominal pain as a cramping ache. She also notes lightheadedness and feeling fatigued. She states that she had a colonoscopy performed a few months ago due to ongoing abdominal issues, however she does not remember the results. She was told she had hemorrhoids at that time and was advised to return in 1-2 weeks for banding, but the patient did not follow up. She denies fever, rectal pain, changes in bladder, changes in appetite, reflux, dysphagia, syncope, shortness of breath, and chest pain. ED work up: Hemoglobin 7.8 with low MCV and MCHC. Prior hemoglobin from 09/2022 was 10.1. The rest of the labs were unremarkable. Urine analysis negative. EKG sinus rhythm. Abdominal/pelvis CT with no acute abnormality. Review of Systems Review of Systems: All systems reviewed & are unremarkable except as noted in HPI and below PMFSH Past Medical History Medical History Ovarian cyst Surgical History Surgical History H/O tubal ligation History of appendectomy Family History Family History (Updated 06/08/23 @ 04:45 by Frankie Arizmendi RN) Mother Diabetes mellitus Hypertension Fibromyalgia Father Hypertension Sibling Diabetes mellitus Hypertension Son Autism Grandparent Leukemia Social History Social History Smoking status: Never smoker Alcohol intake: never Substance use: never Substance use type: does not use Do You Feel Safe in your Home?: Yes Lack of Transportation: No Lack of Food: Sometimes True Current Housing: I Have Housing Concerned About Future Housing: No Difficulty Paying Gas/Electric Bills: YES Difficulty Paying for Meds: YES Currently Unemployed: No Education: High School Diploma/GED Difficulty w/ Childcare or Family Care: No Spiritual care concerns: No Meds Home Medications and Allergies Home Medications Medication Instructions Recorded Confirmed Type No Home Medications 06/08/23 06/08/23 History Allergies Allergy/AdvReac Type Severity Reaction Status Date / Time No Known Allergies Allergy Verified 09/19/22 15:17 Vital Signs Vital Signs - 24 hr 06/07/23 20:39 06/08/23 02:57 06/08/23 03:58 Temperature 97.8 F Pulse Rate 78 70 75 Respiratory Rate 17 16 17 Blood Pressure 144/109 H 149/99 H 148/97 H Pulse Oximetry 100 97 97 Oxygen Delivery Room Air 06/08/23 04:10 Temperature 96.8 F L Pulse Rate 71 Respiratory Rate 19 Blood Pressure 156/81 H Pulse Oximetry 100 Oxygen Delivery Exam Narrative: AF HR 71 RR 19 SpO2 100 BP 156/81 General: female in no acute respiratory distress who is nontoxic appearing, sitting on side of the bed HEENT: Normocephalic. Atraumatic. Pupils equal round reactive to light. Extraocular movement intact. Sclera clear and anicteric. No facial asymmetry. Neck: Neck was supple. No dominant adenopathy, thyromegaly or masses. Chest: Lungs are clear to auscultation bilaterally. No wheezes or crackles. CV: Heart was regular rate and rhythm. S1-S2. No murmurs, gallops, or rubs. Abd: Abdomen was soft. Mild tenderness to epigastric and left lower quadrant. No
[2023-06-08 08:42] LABS: Hematocrit 28.7 % (37.0-47.0); Mean Corpuscular HGB Conc 27.9 g/dl (32-36); Mean Corpuscular Hemoglobin 19.7 pg (26-34); Mean Corpuscular Volume 70.5 fl (80-100); Mean Platelet Volume 9.6 fl (7.4-10.4); Platelet Count Result 389 k/mm3 (150-375); Red Blood Count 4.07 M/mm3 (4.2-5.4); White Blood Count 7.4 K/mm3 (4.5-10.0)
[2023-06-08 08:54] LABS: Anion Gap 8 mmol/L (8-16); Blood Urea Nitrogen 5 mg/dL (7-17); Carbon Dioxide 24 mmol/L (22-30); Chloride 105 mmol/L (98-107); Estimated CRCL calculation 150 ml/min; Estimated Glomerular Filt Rate > 60; Glucose 118 mg/dL (65-110); Potassium 3.6 mmol/L (3.4-5.0); Sodium 137 mmol/L (137-145)
[2023-06-08] MEDS: traMADol HCL (*CRX) 50 MG TABLET PO (09:54)
--- NOTE | 2023-06-08 09:57 | WPDGICN ---
Assessment and Plan Assessment and plan (1) GI (gastrointestinal bleed): Qualifiers: GI bleed type/associated pathology: unspecified gastrointestinal hemorrhage type Qualified Code(s): K92.2 - Gastrointestinal hemorrhage, unspecified Code(s): K92.2 - Gastrointestinal hemorrhage, unspecified Status: Acute Assessment and Plan: pt states she only had small amount of pink tinged blood on tissue this AM. bleeding source could be diverticular with acute drop in H&H vs perianal in source, since improving will continue to montor. - improving from admission -CT scan negative for diverticulitis. -Per pt had colonoscopy two months ago does not remember results but was supposed to follow up in office for hemorrhoidal banding. -will start on hydrocortisone 25 mg suppository BID -will hold off on colonoscopy at this time as rectal bleeding seems to be improving. -can follow up with Previous template worker if rectal bleeding continues or worsens. (2) Anemia: Code(s): D64.9 - Anemia, unspecified Status: Acute Assessment and Plan: Acute 2/2 to GI blood loss continue treading H&H if H&H continues to drop may need to consider repeat colonoscopy (3) Abdominal pain: Qualifiers: Abdominal location: generalized Qualified Code(s): R10.84 - Generalized abdominal pain Code(s): R10.9 - Unspecified abdominal pain Status: Acute Assessment and Plan: Ct scan negative for any acute process. possible underlying IBS. GI Consult Note Consult date/time: 06/08/23 09:57 Reason for consult: GI bleed HPI: Sandra Lofton is a 37 year old female who presented to [facility] on 06/07/2023 for complaints of rectal bleeding. Patient reports passing 6 or 7 episodes loose bloody stools yesterday. states when she 1st noticed the blood it was dark in color but after several episodes the blood was bright red in color. She report passing clots and filling the toilet with blood. she did notice approximately 3 episodes bloody stools this past but this resolved the next day aside from that she denies any prior history of rectal bleeding. She does report associated left lower quadrant tenderness. she does have a history of diverticulitis x2 episodes this past year. Recent CT scan was negative for diverticulitis. States this morning when she had a bowel movement she only had some pink tinged blood on the tissue. Patient states she has frequent loose stools and will going to have a bowel movement every time she goes to the bathroom, this is normal for her. She reports occasional constipation. She had a colonoscopy approximately 2 months for follow-up on diverticulitis in [place] at [facility]. Patient does not recall the results of her colonoscopy but states she was supposed to follow up in the office afterwards for hemorrhoid banding but missed her appointment. she denies any nausea, vomiting, reflux, or dysphagia. Never had EGD. Review of Systems Review of Systems: All systems reviewed & are unremarkable except as noted in HPI and below Constitutional: Constitutional: Reports no additional constitutional complaints Eyes: Eyes: Reports no additional eye complaints ENT: Reports system reviewed and no additional complaints, except as documented Cardiovascular: Cardiovascular: Reports no additional cardiovascular complaints Respiratory: Respiratory: Reports no additional respiratory complaints Gastrointestinal: Gastrointestinal: Reports as per HPI Musculoskeletal: Musculoskeletal: Reports no additional musculoskeletal complaints Integumentary/Breasts: Skin/Breast: Reports system reviewed and no additional complaints, except as docu Neurologic: Reports system reviewed and no additional complaints, except as documented Psychiatric: Psychiatric: Reports no additional psychiatric complaints [facility] Past Medical History Medical History (Re
[2023-06-08 13:22] VITALS: BP 131/74; PULSE 81; RESP 19; TEMP 36.2; O2SAT 100
[2023-06-08 15:05] LABS: Hematocrit 26.9 % (37.0-47.0); Hemoglobin 7.8 g/dL (12.0-15.0)
[2023-06-08 21:01] LABS: Hematocrit 26.9 % (37.0-47.0); Hemoglobin 7.8 g/dL (12.0-15.0)
[2023-06-08 21:33] VITALS: BP 121/81; PULSE 75; RESP 16; TEMP 36.1; O2SAT 99
[2023-06-09 05:29] VITALS: BP 119/75; PULSE 78; RESP 18; TEMP 36.5; O2SAT 100
[2023-06-09 06:58] LABS: Hematocrit 28.5 % (37.0-47.0); Mean Corpuscular HGB Conc 28.1 g/dl (32-36); Mean Corpuscular Hemoglobin 19.8 pg (26-34); Mean Corpuscular Volume 70.5 fl (80-100); Mean Platelet Volume 9.9 fl (7.4-10.4); Platelet Count Result 393 k/mm3 (150-375); Red Blood Count 4.04 M/mm3 (4.2-5.4); Red Cell Distribution Width 15.9 % (11.5-14.5); White Blood Count 7.8 K/mm3 (4.5-10.0)
[2023-06-09 07:19] LABS: Anion Gap 5 mmol/L (8-16); Blood Urea Nitrogen 8 mg/dL (7-17); Calcium 9.2 mg/dL (8.4-10.2); Carbon Dioxide 27 mmol/L (22-30); Chloride 106 mmol/L (98-107); Estimated CRCL calculation 126 ml/min; Estimated Glomerular Filt Rate > 60; Glucose 111 mg/dL (65-110); Sodium 138 mmol/L (137-145)
[2023-06-09 08:57] LABS: Toxigenic C. Diff NEGATIVE (NEGATIVE)
[2023-06-09 09:13] VITALS: O2SAT 100
[2023-06-09 13:51] VITALS: BP 129/77; PULSE 81; RESP 18; TEMP 36.6; O2SAT 100
--- NOTE | 2023-06-09 15:23 | WPDGIPROGNO ---
Progress Note: A&P Assessment and Plan (1) Abdominal pain: Qualifiers: Abdominal location: generalized Qualified Code(s): R10.84 - Generalized abdominal pain Code(s): R10.9 - Unspecified abdominal pain Status: Acute Assessment and Plan: improved, CT scan reviewed she is going home (2) Anemia: Code(s): D64.9 - Anemia, unspecified Status: Acute Assessment and Plan: had recent colonoscopy few months ago per patient- she will try to get report will set up EGD as outpatient, she is aware (3) Rectal bleeding: Code(s): K62.5 - Hemorrhage of anus and rectum Status: Acute Assessment and Plan: could be from hemorrhoids prescribe hydrocortisone supp she can follow-up in office Subjective Date/time seen: 06/09/23 15:23 Interval history: she is feeling much better, able to eat and comfortable. Today is here birthday Review of Systems Review of Systems: All systems reviewed & are unremarkable except as noted in HPI and below Exam Const: General: comfortable Other: obese HENMT: Face/Nose/Sinus: Normal nares present Eyes: Sclera: sclerae normal Neck: Neck: supple Resp: Effort & Inspection: normal respiratory effort Auscultation: clear to auscultation bilaterally Cardio: Rate: regular rate Rhythm: regular rhythm GI: Inspection: normal to inspection GI Palp: Yes abdominal tenderness (LLQ) and No Tenderness to palpation present (GI) Auscultation: normal bowel sounds Objective Data Vital Signs Vital Signs: Vital Signs - 24 hr 06/08/23 20:00 06/08/23 21:33 06/09/23 05:29 Temperature 97.0 F L 97.7 F Pulse Rate 75 78 Respiratory Rate 16 18 Blood Pressure 121/81 119/75 Pulse Oximetry 99 100 Oxygen Delivery Room Air 06/09/23 09:13 06/09/23 13:51 Temperature 97.8 F Pulse Rate 81 Respiratory Rate 18 Blood Pressure 129/77 Pulse Oximetry 100 100 Oxygen Delivery Room Air Intake/Output Intake/Output: Intake & Output 06/06/23 06/07/23 06/08/23 06/09/23 23:59 23:59 23:59 23:59 Intake Total 1958 994 Output Total 1100 400 Balance 858 594 Meds/Results Radiology Results: ITS Impressions Abdomen/Pelvis CT 06/08/23 05:28 Impression: No acute abnormality. Stable right adrenal nodule, most likely adenoma. Labs Labs: Laboratory Results - last 24 hr 06/08/23 06/08/23 06/08/23 14:47 20:36 20:56 WBC RBC Hgb 7.8 L 7.8 L Hct 26.9 L 26.9 L MCV MCH MCHC RDW Plt Count MPV Sodium Potassium Chloride Carbon Dioxide Anion Gap BUN Creatinine Estim Creat Clear Calc Estimated GFR Glucose Calcium C. difficile (PCR) Negative 06/09/23 06:25 WBC 7.8 RBC 4.04 L Hgb 8.0 L Hct 28.5 L MCV 70.5 L MCH 19.8 L MCHC 28.1 L RDW 15.9 H Plt Count 393 H MPV 9.9 Sodium 138 Potassium 4.0 Chloride 106 Carbon Dioxide 27 Anion Gap 5 L BUN 8 Creatinine 0.60 L Estim Creat Clear Calc 126 Estimated GFR > 60 Glucose 111 H Calcium 9.2 C. difficile (PCR) Amg Follow-up Billing Hospital Follow-up Hospital Follow-up: [id number] [facility]
--- NOTE | 2023-06-09 17:03 | PM.DS ---
DS: Admitting Diagnosis Discharge Date 06/09/23 Admitting Diagnosis Gastrointestinal bleed Anemia DS: Discharge Diagnosis Discharge Diagnosis (1) GI (gastrointestinal bleed): Qualifiers: GI bleed type/associated pathology: unspecified gastrointestinal hemorrhage type Qualified Code(s): K92.2 - Gastrointestinal hemorrhage, unspecified Code(s): K92.2 - Gastrointestinal hemorrhage, unspecified Status: Acute (2) Anemia: Code(s): D64.9 - Anemia, unspecified Status: Acute DS: Summary Hospital Course Reason for hospitalization: Gastrointestinal bleed anemia Hospital Course: 37 year old female with past medical history of diverticulitis, hemorrhoids, ANTONIO and appendicitis s/p appendectomy presented to the ED for a GI bleed. Patient reports 7-8 bloody stools on 06/06. Yesterday she reported less bleeding stating there is only a small amount of blood tinge on the tissue when wiping. She states she had a colonoscopy a few months ago but does not remember the results. She was suppose to follow up for hemorrhoidal banding but failed to do so. She endorsed LLQ pain. CT abdomen was negative for diverticulitis. H&H was low on arrival. There is no signs of active bleeding and the level has remained stable during admission. Patient is being discharged with iron supplementation. GI examined patient and decided to hold off on colonoscopy at this time due to improvement in bleeding. Today patient denies hematochezia, melena, nausea/vomiting, diarrhea/constipation, weakness, dizziness, shortness of breath and chest pain. She states she had two nonbloody formed stools. She will follow up with GI in 2 weeks for an EGD outpatient. She was discharged home on the hydrocortisone suppository for her hemorrhoids. Patient to follow up with primary care in 1 week and GI in 2 weeks. Patient is discharged home in stable condition. Discussed with patient that if the bleeding reoccurs, if she becomes weak, develops chest pain, or shortness of breath to return to the hospital or call her primary care provider. Status at Discharge Functional status at discharge: independent ambulation Time Spent with Patient Time attestation: Total time spent providing and/or coordinating discharge services: Exam Narrative: AF HR 81 RR 18 SpO2 100 BP 129/77 General: female in no acute respiratory distress who is nontoxic appearing, sitting on side of the bed HEENT: Normocephalic. Atraumatic. Pupils equal round reactive to light. Extraocular movement intact. Sclera clear and anicteric. No facial asymmetry. Neck: Neck was supple. No dominant adenopathy, thyromegaly or masses. Chest: Lungs are clear to auscultation bilaterally. No wheezes or crackles. CV: Heart was regular rate and rhythm. S1-S2. No murmurs, gallops, or rubs. Abd: Abdomen was soft. Mild tenderness to epigastric and left lower quadrant. Nondistended. Positive bowel sounds. No organomegaly or masses. Ext: No clubbing, cyanosis, or edema. 2+ DP pulses bilaterally. Neuro: Patient is alert and oriented x4. Strength is 5/5 in both upper and lower extremities. Cranial nerves 2-12 are intact. Speech is clear. Psych: Normal mood and affect. Patient is pleasant and cooperative. Skin: Warm and dry. No rashes noted. DS: Data Data Completed and Pending Completed studies during hospitalization: Abdomen/pelvis CT Labs on day of discharge: Labs from last 24 hours 06/09/23 06/08/23 06/08/23 06:25 20:56 20:36 WBC 7.8 RBC 4.04 L Hgb 8.0 L 7.8 L Hct 28.5 L 26.9 L MCV 70.5 L MCH 19.8 L MCHC 28.1 L RDW 15.9 H Plt Count 393 H MPV 9.9 Sodium 138 Potassium 4.0 Chloride 106 Carbon Dioxide 27 Anion Gap 5 L BUN 8 Creatinine 0.60 L Estim Creat Clear Calc 126 Estimated GFR > 60 Glucose 111 H Calcium 9.2 C. difficile (PCR) Negative Discharge Plan Discharge Attending physician on discharge: Genie Hill
== END 2023-06-09 15:12 | disposition home or self-care (01) ==
LOC: ANHED 06-08 02:50 → ANH3MEDSUR 06-08 03:59
PROVIDERS: Emergency Medicine; Student in an Organized Health Care Education/Training Program; Admitting Provider Internal Medicine; Emergency Provider Physician Assistant; Visit Provider Family Medicine
DX: K92.2 Gastrointestinal hemorrhage, unspecified (principal); D64.9 Anemia, unspecified; R10.84 Generalized abdominal pain; K64.9 Unspecified hemorrhoids; N90.89 Other specified noninflammatory disorders of vulva and perineum; E27.9 Disorder of adrenal gland, unspecified; G47.33 Obstructive sleep apnea (adult) (pediatric); Z90.89 Acquired absence of other organs; Z90.49 Acquired absence of other specified parts of digestive tract; Z79.899 Other long term (current) drug therapy
CPT/HCPCS: 36415; 74177; 80048; 80053; 83605; 83690; 85014; 85018; 85025; 85027; 85610; 85730; 86850; 86900; 86901; 87493; 93005; 96360; 99285; A9270; G0378; G0379; J7030; Q9967